=== PATIENT | female | born 1975 | race Caucasian/White ===

== ENCOUNTER 2019-01-19 10:02 | Emergency (ER) | payer OTHER ==
[2019-01-19 10:15] VITALS: O2SAT 99
[2019-01-19 11:37] LABS: BASO # 0.1 K/uL (0.0-0.2); BASO % 0.6 % (0.0-2.0); EOS # 0.1 K/uL (0.0-0.7); HEMOGLOBIN 13.7 g/dL (11.0-16.0); LYMPH # 3.2 K/uL (1.0-4.3); LYMPH % 32.2 % (20.0-40.0); MEAN CELL VOLUME 90.6 fL (81.0-99.0); MEAN CORPUSCULAR HEMOGLOBIN 31.2 pg (27.0-31.0); MEAN CORPUSCULAR HGB CONC 34.4 g/dL (33.0-37.0); MEAN PLATELET VOLUME 8.6 fL (7.2-11.7); MONO # 0.6 K/uL (0.0-0.8); NEUT % 60.2 % (50.0-75.0); NRBC % 0.1 % (0.0-2.0); RBC 4.41 Mil/uL (3.80-5.20); RED CELL DISTRIBUTION WIDTH 13.1 % (11.5-14.5)
[2019-01-19 11:44] LABS: SQUAMOUS EPITHIAL 3 /hpf (0-5); URINE BILIRUBIN NEGATIVE (NEGATIVE); URINE BLOOD 1+ (NEGATIVE); URINE CLARITY Clear (Clear); URINE COLOR Yellow (YELLOW); URINE GLUCOSE (UA) 3+ mg/dL (Normal); URINE LEUKOCYTE ESTERASE NEG Leu/uL (Negative); URINE PROTEIN NEGATIVE (NEGATIVE); URINE UROBILINOGEN NORMAL mg/dL (0.2-1.0)
--- NOTE | 2019-01-19 11:50 | C.PDOC ---
History Of Present Illness 43 y/o female with dm c/o right sided upper quadrant pain x 2 days with nausea, no vomiting or diarrhea. no fever or chills. worse with foods. denies urinary symptoms. Time Seen by Provider: 01/19/19 10:50 Chief Complaint (Nursing): Abdominal Pain History Per: Patient History/Exam Limitations: no limitations Onset/Duration Of Symptoms: Days Current Symptoms Are (Timing): Still Present Severity: Moderate Location Of Pain/Discomfort: RUQ Associated Symptoms: Nausea. denies: Fever, Chills, Vomiting, Diarrhea, Urinary Symptoms Exacerbating Factors: Food Past Medical History Reviewed: Historical Data, Nursing Documentation, Vital Signs Vital Signs: Last Vital Signs Temp 98.9 F 01/19/19 10:12 Pulse 76 01/19/19 10:12 Resp 18 01/19/19 10:12 BP 111/73 01/19/19 10:12 Pulse Ox 99 01/19/19 10:12 - Medical History PMH: Diabetes Surgical History: Family History: States: No Known Family Hx - Social History Hx Tobacco Use: No Hx Alcohol Use: No Hx Substance Use: No - Immunization History Hx Tetanus Toxoid Vaccination: No Hx Influenza Vaccination: No Hx Pneumococcal Vaccination: No Review Of Systems Constitutional: Negative for: Fever, Chills Gastrointestinal: Positive for: Nausea, Abdominal Pain. Negative for: Vomiting, Diarrhea Genitourinary: Negative for: Dysuria, Hematuria Physical Exam - Physical Exam Appears: Non-toxic, No Acute Distress Skin: Normal Color, Warm, Dry Head: Atraumatic, Normacephalic Eye(s): bilateral: Normal Inspection Nose: Normal Oral Mucosa: Moist Neck: Supple Chest: Symmetrical Cardiovascular: Rhythm Regular Respiratory: Normal Breath Sounds, No Rales, No Rhonchi, No Wheezing Gastrointestinal/Abdominal: Bowel Sounds (normal bowel sounds), Soft, Tenderness (mild RUQ tenderness), No Guarding, No Rebound Neurological/Psych: Oriented x3, Normal Speech ED Course And Treatment - Laboratory Results Result Diagrams: 01/19/19 11:33 01/19/19 11:33 Lab Results: Urine Color Yellow (YELLOW) 01/19/19 11:33 Urine Clarity Clear (Clear) 01/19/19 11:33 Urine pH 5.0 (5.0-8.0) 01/19/19 11:33 Ur Specific [place] 1.023 (1.003-1.030) 01/19/19 11:33 Urine Protein Negative mg/dL (NEGATIVE) 01/19/19 11:33 Urine Glucose (UA) 3+ mg/dL (Normal) H 01/19/19 11:33 Urine Ketones Negative mg/dL (NEGATIVE) 01/19/19 11:33 Urine Blood 1+ (NEGATIVE) H 01/19/19 11:33 Urine Nitrate Negative (NEGATIVE) 01/19/19 11:33 Urine Bilirubin Negative (NEGATIVE) 01/19/19 11:33 Urine Urobilinogen Normal mg/dL (0.2-1.0) 01/19/19 11:33 Ur Leukocyte Esterase Neg Karin/uL (Negative) 01/19/19 11:33 Urine WBC (Auto) 2 /hpf (0-5) 01/19/19 11:33 Urine RBC (Auto) 12 /hpf (0-3) H 01/19/19 11:33 Ur Squamous Epith Cells 3 /hpf (0-5) 01/19/19 11:33 O2 Sat by Pulse Oximetry: 99 (RA) Pulse Ox Interpretation: Normal - CT Scan/US upper abdomen Other Rad Studies (CT/US): Read By Radiologist, Radiology Report Reviewed CT/US Interpretation: Date of service: 01/19/2019. HISTORY: ruq pain eval for gallstones, cholecystitis. COMPARISON: CT abdomen and pelvis without contrast performed 12/05/16. TECHNIQUE: Sonographic evaluation of the right upper quadrant of the abdomen. FINDINGS: LIVER: Measures 14.3 cm in length. Normal echogenicity of the liver parenchyma. No focal hepatic mass identified. The main portal vein appears patent with normal directional flow. No intrahepatic bile duct dilatation. GALLBLADDER: No gallstones. No gallbladder wall thickeni ng or pericholecystic edema. Negative sonographic Graham's sign as assessed by the bridge repair crew person. COMMON BILE DUCT: Measures 3 mm. PANCREAS: Not well- visualized. RIGHT KIDNEY: Measures approximately 12.0 x 5.2 x 4.7 cm. No hydronephrosis or obstructing calculus identified. AORTA: Limited visu alization appears grossly unremarkable. IVC: Limited visualization appears grossly unremarkable. OTHER FINDINGS: None . IMPRESSION: No acute findings identified. Medical Decision Making Medical Decision Making: Plan: --Labs --UA --US- Abd. --IV Fluids 1515 pt feeling better. decreased discomfort s/p pepcid. abdomen soft, nt, nd on re-exam. pt with normal sonogram. will re-check sugar after iv fluids. blood sugar now 193/ Disposition Counseled Patient/Family Regarding: Studies Performed, Diagnosis, Need For Followup, Rx Given - Disposition Referrals: [facility] [Outside] Disposition: HOME/ ROUTINE Disposition Time: 15:19 Condition: IMPROVED Additional Instructions: Silvano un seguimiento de la clnica mdica lo antes posible. [place] Pepcid segn lo prescrito. Lleve un diario de alimentos para ayudar a determinar qu alimentos hacen que el estmago tenga gases o dolor. Silvano un seguimiento de la clnica mdica lo antes posible. [place] Pepcid segn lo prescrito. Lleve un diario de alimentos para ayudar a determinar qu alimentos hacen que el estmago tenga gases o dolor. Prescriptions: Famotidine [Pepcid] 20 mg PO DAILY #14 tab Instructions: Dyspepsia Forms: Gen Discharge Inst Tajik, [email or web address] (Tajik) - Clinical Impression Clinical Impression: Dyspepsia - PA / LAND ACQUISITION SPECIALIST / Resident Statement MD/DO has reviewed & agrees with the documentation as recorded. - Scribe Statement The provider has reviewed the documentation as recorded by the Scribe Inocencio Rivera Provider Attestation All medical record entries made by the Scribe were at my direction and personally dictated by me. I have reviewed the chart and agree that the record accurately reflects my personal performance of the history, physical exam, medical decision making, and the department course for this patient. I have also personally directed, reviewed, and agree with the discharge instructions and disposition.
--- NOTE | 2019-01-19 12:01 | C.PDOC ---
Time Seen by Provider: 01/19/19 10:50 Chief Complaint (Nursing): Abdominal Pain Past Medical History Vital Signs: Last Vital Signs Temp 98.9 F 01/19/19 10:12 Pulse 76 01/19/19 10:12 Resp 18 01/19/19 10:12 BP 111/73 01/19/19 10:12 Pulse Ox 99 01/19/19 10:12 - Medical History PMH: Diabetes Surgical History: - Social History Hx Tobacco Use: No Hx Alcohol Use: No Hx Substance Use: No - Immunization History Hx Tetanus Toxoid Vaccination: No Hx Influenza Vaccination: No Hx Pneumococcal Vaccination: No ED Course And Treatment - Laboratory Results Result Diagrams: 01/19/19 11:33 Lab Results: Urine Color Yellow (YELLOW) 01/19/19 11:33 Urine Clarity Clear (Clear) 01/19/19 11:33 Urine pH 5.0 (5.0-8.0) 01/19/19 11:33 Ur Specific [place] 1.023 (1.003-1.030) 01/19/19 11:33 Urine Protein Negative mg/dL (NEGATIVE) 01/19/19 11:33 Urine Glucose (UA) 3+ mg/dL (Normal) H 01/19/19 11:33 Urine Ketones Negative mg/dL (NEGATIVE) 01/19/19 11:33 Urine Blood 1+ (NEGATIVE) H 01/19/19 11:33 Urine Nitrate Negative (NEGATIVE) 01/19/19 11:33 Urine Bilirubin Negative (NEGATIVE) 01/19/19 11:33 Urine Urobilinogen Normal mg/dL (0.2-1.0) 01/19/19 11:33 Ur Leukocyte Esterase Neg Karin/uL (Negative) 01/19/19 11:33 Urine WBC (Auto) 2 /hpf (0-5) 01/19/19 11:33 Urine RBC (Auto) 12 /hpf (0-3) H 01/19/19 11:33 Ur Squamous Epith Cells 3 /hpf (0-5) 01/19/19 11:33 O2 Sat by Pulse Oximetry: 99 Disposition - Disposition
[2019-01-19 12:03] LABS: ALB/GLOB RATIO 1.3 (1.0-2.1); ALBUMIN 4.1 g/dL (3.5-5.0); ALT/SGPT 13 U/L (9-52); AST/SGOT 26 U/L (14-36); BLOOD UREA NITROGEN 12 mg/dL (7-17); CALCIUM 9.8 mg/dl (8.6-10.4); GFR NON-AFRICAN AMERICAN > 60; LIPASE 79 U/L (23-300)
[2019-01-19] MEDS ORDERED: Sodium Chloride 0.9% 1,000 ML ONE (12:28)
[2019-01-19] MEDS ORDERED: Sodium Chloride 0.9% 1,000 ML IV SCH (12:30)
--- NOTE | 2019-01-19 14:03 | US ---
Date of service: 01/19/2019 HISTORY: ruq pain eval for gallstones, cholecystitis COMPARISON: CT abdomen and pelvis without contrast performed 12/05/16 TECHNIQUE: Sonographic evaluation of the right upper quadrant of the abdomen. FINDINGS: LIVER: Measures 14.3 cm in length. Normal echogenicity of the liver parenchyma. No focal hepatic mass identified. The main portal vein appears patent with normal directional flow. No intrahepatic bile duct dilatation. GALLBLADDER: No gallstones. No gallbladder wall thickening or pericholecystic edema. Negative sonographic Graham's sign as assessed by the technology coordinator. COMMON BILE DUCT: Measures 3 mm. PANCREAS: Not well-visualized. RIGHT KIDNEY: Measures approximately 12.0 x 5.2 x 4.7 cm. No hydronephrosis or obstructing calculus identified. AORTA: Limited visualization appears grossly unremarkable. IVC: Limited visualization appears grossly unremarkable. OTHER FINDINGS: None . IMPRESSION: No acute findings identified.
[2019-01-19 15:36] VITALS: BP 113/78; PULSE 70; RESP 20; TEMP 98.3
== END 2019-01-19 15:34 | disposition home or self-care (01) ==
LOC: C.ER 10:02
DX: R10.13 Epigastric pain (principal)
CPT/HCPCS: 76705; 80053; 81001; 81025; 82948; 83690; 85025; 96361; 96374; 99285; J7030